=== PATIENT | female | born 2000 | race African-American/Black ===

== ENCOUNTER 2020-01-01 17:45 | Emergency (ER) | payer OTHER ==
[2020-01-01 17:53] VITALS: BP 113/71
--- NOTE | 2020-01-01 17:56 | ED Physician Documentation ---
PD HPI SKIN - Stated complaint Stated Complaint: HIVES - Chief complaint Chief Complaint: Allergic Rx - History obtained from History obtained from: Patient - History of Present Illness Timing - onset: Today, Last night (slightly itchy on arms last night, diffuse on body today) Timing - duration: Days (1) Timing - details: Gradual onset, Still present Location: Bodywide Quality / character: Itchy, Burning. No: Vesicular, Swelling Associated symptoms: No: Fever, Facial swelling, Dyspnea, N/V/D Contributing factors: No: Exposed to medication, Exposed to food, Exposed to soap / lotion, Recent illness Similar symptoms before: Has not had sx before Recently seen: Not recently seen Review of Systems Constitutional: denies: Fever, Chills Nose: denies: Rhinorrhea / runny nose, Congestion Throat: denies: Sore throat Respiratory: denies: Cough GI: denies: Nausea, Vomiting, Diarrhea : denies: Dysuria Skin: reports: Rash (new onset today) PD PAST MEDICAL HISTORY - Past Medical History Cardiovascular: None Respiratory: None Neuro: None Endocrine/Autoimmune: None - Present Medications Home Medications: Ambulatory Orders Medication Instructions Recorded Confirmed Cetirizine [ZyrTEC] 10 mg PO DAILY #15 tablet 01/01/20 EPINEPHrine [Epinephrine] 0.3 mg IJ ONCE PRN #1 auto.injct 01/01/20 dexAMETHasone [Decadron] 4 mg PO DAILY #5 tablet 01/01/20 - Allergies Allergies/Adverse Reactions: Allergies Allergy/AdvReac Type Severity Reaction Status Date / Time Penicillins Allergy Hives Verified 01/01/20 17:49 PD ED PE NORMAL - Vitals Vital signs reviewed: Yes - General General: Alert and oriented X 3, No acute distress, Well developed/nourished - HEENT HEENT: Ears normal, Moist mucous membranes, Pharynx benign - Neck Neck: Supple, no meningeal sign, No adenopathy - Cardiac Cardiac: RRR, No murmur - Respiratory Respiratory: Clear bilaterally - Derm Derm: Normal color, Warm and dry, Other (Diffuse pebbly and slightly patchy itchy raised rash without any vesicles. Consistent with hives. No swelling of the lips tongue or throat. Normal breathing and voice.) - Neuro Neuro: Alert and oriented X 3, No motor deficit, Normal speech Results - Vitals Vitals: Vital Signs - 24 hr 01/01/20 17:49 Temperature 37.1 C Heart Rate 98 Respiratory 16 Rate Blood Pressure 113/71 O2 Saturation 100 Oxygen O2 Source Room air PD MEDICAL DECISION MAKING - ED course Complexity details: considered differential, d/w patient, d/w family (The patient called her mother on the phone and asked that I talk with her as well. A relayed the treatment plan with her mom. There is no anaphylactic type symptoms but the mom did ask to prescribe an EpiPen in case and that seemed reasonable enough. Otherwise to see if the symptoms improve over the next several days and stay away. If persistent or recurrent then to follow-up with her primary care for potential as allergy testing.) Departure - Departure Disposition: 01 Home, Self Care Clinical Impression: Acute urticaria Condition: Stable Record reviewed to determine appropriate education?: Yes Instructions: ED Allergic Reaction General Other Follow-Up: LISANDRO Maher [Provider Group] Prescriptions: Cetirizine [ZyrTEC] 10 mg PO DAILY #15 tablet dexAMETHasone [Decadron] 4 mg PO DAILY #5 tablet EPINEPHrine [Epinephrine] 0.3 mg IJ ONCE PRN #1 auto.injct PRN Reason: Anaphylaxis Comments: Take the Decadron steroid daily for 5 more days. Cetirizine long-acting antihistamine daily for 2 weeks. Add Benadryl 25 to 50 mg every 6 hours if needed for itchiness in the short-term over the next 1 or 2 days. I would anticipate improvement over the next day or 2. Recheck if not improved well over the next 2 to 3 days. We typically continue the steroid and antihistamines a bit longer to outlast the triggering process. There is no obvious cause by history at this point. Sometimes it is environmental such as hayfever. Recheck if persisting beyond several days or if recurrent in the near future after medicines are done. That may signify the need for more specific allergy testing. Discharge Date/Time: 01/01/20 18:36
[2020-01-01] MEDS ORDERED: DEXAMETHASONE 10 MG/ML VIAL PO STA (18:25)
[2020-01-01] MEDS ORDERED: CHERRY SYRUP 10 ML UDC PO ONE (18:25)
[2020-01-01] MEDS ORDERED: CETIRIZINE 10 MG TABLET PO STA (18:25)
[2020-01-01] MEDS ORDERED: FAMOTIDINE 20 MG TABLET PO STA (18:25)
== END 2020-01-01 18:36 | disposition home or self-care (01) ==
LOC: ED 17:45
DX: L50.9 Urticaria, unspecified (principal)
CPT/HCPCS: 99283; 99284; A9270

== ENCOUNTER 2023-08-04 11:45 | Outpatient (CLI) | payer OTHER | END 2023-08-04 12:00 | disposition home or self-care (01) | LOC: LAB.N 11:45 | PROVIDERS: ATTEND Family Medicine | DX: R50.9 Fever, unspecified (principal); J02.9 Acute pharyngitis, unspecified | CPT/HCPCS: 81599; 87081 ==

== ENCOUNTER 2023-11-02 13:53 | Emergency (ER) | payer OTHER ==
[2023-11-02 14:12] LABS: RAPID STREP SCREEN Negative (Negative)
--- NOTE | 2023-11-02 14:35 | ED Physician Documentation ---
PD HPI HEENT - Stated complaint Stated Complaint: THROAT PX - Chief complaint Chief Complaint: Heent - History obtained from History obtained from: Patient - Additional information Additional information: Otherwise healthy 23-year-old has had a terrible sore throat for the last 5 days. She went to the clinic on [address] 2 days ago and was diagnosed with strep throat by swab. She was started on azithromycin given a allergy to penicillins with reaction of anaphylaxis. She has not improved since then and has had truly continued to get worse and it hurts to talk. PD PAST MEDICAL HISTORY - Past Medical History Cardiovascular: None Respiratory: None Neuro: None Endocrine/Autoimmune: None - Present Medications Home Medications: Ambulatory Orders Medication Instructions Recorded Confirmed Azithromycin 500 mg PO DAILY 11/02/23 11/02/23 HYDROcod/ACETAM 5/325 [[place] 5/325] 1 - 2 tab PO Q6H PRN #15 tablet 11/02/23 clindamycin HCL [Cleocin HCl] 300 mg PO QID #28 cap 11/02/23 - Allergies Allergies/Adverse Reactions: Allergies Allergy/AdvReac Type Severity Reaction Status Date / Time Penicillins Allergy Hives Verified 11/02/23 13:57 - Social History Does the pt smoke?: No Smoking Status: Never smoker Does the pt drink ETOH?: No Does the pt have substance abuse?: No - Immunizations Immunizations are current?: Yes - POLST Patient has POLST: No PD ED PE NORMAL - Vitals Vital signs reviewed: Yes - General General: Alert and oriented X 3, No acute distress - HEENT HEENT: Other (Muffled hot potato voice with some trismus and a very large right- sided peritonsillar abscess.) - Neck Neck: Supple, no meningeal sign, No bony TTP - Derm Derm: No rash - Neuro Neuro: Alert and oriented X 3 Results - Vitals Vitals: Vital Signs - 24 hr 11/02/23 11/02/23 11/02/23 13:57 15:00 15:48 Temperature 37.9 C Heart Rate 130 H 116 H 109 H Respiratory 16 16 18 Rate Blood Pressure 144/83 H 135/96 H 121/78 O2 Saturation 100 98 99 Oxygen O2 Source Room air - Labs Labs: Laboratory Tests 11/02/23 14:00 Group A Strep Rapid Negative Procedures - Abscess I&D (location) R peritonsillar Preparation: Lidocaine 1%, With epi Incision: Needle aspiration (~5ml pus) Other: Pt tolerated well PD Medical Decision Making - ED course ED course: 23-year-old with recent history of strep throat failing to improve on azithromycin and now with a large right peritonsillar abscess. She was administered IV fluids, dexamethasone, Toradol, and clindamycin in the department noting penicillin allergy. Feeling better after the above and even better after aspiration of the right peritonsillar abscess which she tolerated well. It was sent for culture. Departure - Departure Disposition: Home, Self Care Clinical Impression: Peritonsillar abscess Condition: Good Record reviewed to determine appropriate education?: Yes Instructions: ED Peritonsillar Abscess Prescriptions: clindamycin HCL [Cleocin HCl] 300 mg PO QID #28 cap HYDROcod/ACETAM 5/325 [[place] 5/325] 1 - 2 tab PO Q6H PRN #15 tablet PRN Reason: Pain Comments: On she is you were seen today for a peritonsillar abscess on the right. We did a needle aspiration and also gave you a dose of IV antibiotics. You should follow-up with your doctor in 2 days for recheck. Return for new or worsening symptoms. I sent prescriptions for antibiotics and painkillers to the [facility] in [place]. I am prescribing a short course of narcotic pain medication for you. These are potentially dangerous and addictive medications that should be used carefully. These medications may constipate you. Take an [id number] stool softener (docusate) twice daily with plenty of water while taking these medications. If you go 24 hours without a bowel movement, take [id number] miralax, per package instructions. Do not drink or drive while taking these medications. If you received narcotic or sedating medications while in the emergency department, do not drive for 24 hours. Store this medication in a safe, secure place and out of reach of children. It is a violation of federal law to give or sell this medication to another person or to use in a manner other than prescribed. The ED will not refill narcotic prescriptions, including prescriptions lost or stolen. To dispose of unwanted medications: 1. [facility]'s Office provides a drop box for medication in pill form only (no liquids) 8:00 am to 4:30 p.m. Friday-Friday in the lobby [facility] [place], [address] Empty pills into ziplock bag before disposal. Call [phone] for information. 2.[employer] is a free service available to all [facility] residents. Go to [email or web address] Note that many narcotic pain relievers also contain Tylenol/acetaminophen. Please ensure that your total dose of acetaminophen from all sources does not exceed 3 g (3000 mg) per day. We are performing a wound culture, the results should be done in 48-72 hours. If antibiotic change is necessary we will call you. Forms: PCP List, Activity restrictions Discharge Date/Time: 11/02/23 15:51
[2023-11-02] MEDS: SODIUM CHLORIDE 0.9% 1,000 ML IV STA (14:47)
[2023-11-02] MEDS: CLINDAMYCIN 600 MG/50 ML 50 ML IV ONE (14:47)
[2023-11-02] MEDS: DEXAMETHASONE 10 MG/ML VIAL IVP STA (14:47)
[2023-11-02] MEDS: KETOROLAC 15 MG/ML VIAL IVP STA (14:47)
[2023-11-02] MEDS: LIDOCAINE 2%-EPI 1:100000 20 ML MDV SUBQ STA (15:10)
[2023-11-02] MEDS: BENZOCAINE SPRAY MM STA (15:27)
[2023-11-02 15:53] VITALS: BP 121/78; O2SAT 99
== END 2023-11-02 15:51 | disposition home or self-care (01) ==
LOC: ED 13:53
DX: J36 Peritonsillar abscess (principal)
CPT/HCPCS: 42700; 87070; 87077; 87205; 87430; 96365; 96375; 99283; A9270

== ENCOUNTER 2024-03-18 16:28 | Emergency (ER) | payer OTHER ==
[2024-03-18 16:47] VITALS: BP 139/100; O2SAT 100
--- NOTE | 2024-03-18 17:02 | ED Physician Documentation ---
PD HPI ABD PAIN - Stated complaint Stated Complaint: LOWER ABD PX - Chief complaint Chief Complaint: Abd Pain - History obtained from History obtained from: Patient - Additional information Additional information: She is . Not sure how far along. At 3 PM today she developed a severe lower abdominal cramp lasting 40 minutes. She has been constipated which is usual for her. Pain is completely gone now. There is no bleeding or fluid loss. She is now G2, P1. 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: No Smoking Status: Never smoker Does the pt drink ETOH?: No Does the pt have substance abuse?: No - Immunizations Immunizations are current?: Yes - POLST Patient has POLST: No PD ED PE NORMAL - Vitals Vital signs reviewed: Yes - General General: Alert and oriented X 3, No acute distress - Abdomen Abdomen: Non tender, Other (Completely benign abdominal examination with no tenderness. Bedside ultrasound demonstrates single live intrauterine with heart rate of 155 and about 18 weeks by [facility].) - Extremities Extremities: No deformity, No tenderness to palpate - Neuro Neuro: Alert and oriented X 3, Normal speech Results - Vitals Vitals: Vital Signs - 24 hr 03/18/24 16:34 Temperature 36.7 C Heart Rate 109 H Respiratory 16 Rate Blood Pressure 139/100 H O2 Saturation 100 Oxygen O2 Source Room air PD Medical Decision Making - ED course ED course: Pain is gone, so I do not think any significant testing is necessary today. She is about 18 weeks by my estimation using bedside ultrasound. Close follow-up with PATIENT ACCESS SPECIALIST was recommended as well as return precautions. Departure - Departure Disposition: 01 Home, Self Care Clinical Impression: Abdominal pain Condition: Good Record reviewed to determine appropriate education?: Yes Instructions: ED Abdominal Pain Female Non-Specific Abdominal Pain Comments: You are seen today for resolved episode of abdominal pain. As discussed, I think was either related or the constipation. Since the pain is gone I do not think much in the way of testing is done but do notes that it looks like you are much further along than suspected. Via my brief ultrasound I ballpark that you are at 18 weeks gestation. Follow-up with your flight surgeon as soon as possible for referral to PATIENT ACCESS SPECIALIST. Return if worse.
== END 2024-03-18 17:09 | disposition home or self-care (01) ==
LOC: ED 16:28
DX: O26.892 Other specified pregnancy related conditions, second trimester (principal); R10.30 Lower abdominal pain, unspecified; Z3A.18 18 weeks gestation of pregnancy
CPT/HCPCS: 80053; 83690; 85025; 99281; 99282